=== PATIENT | female | born 1945 | race Caucasian/White ===

== ENCOUNTER 2023-01-07 14:06 | Emergency (ER) | payer MEDICARE, OTHER ==
[2023-01-07] MEDS ORDERED: Sodium Chloride 0.9% 10 ML Syringe FLUSH PRN (15:35)
[2023-01-07 16:09] LABS: BASOPHILS ABSOLUTE AUTO 0.02 K/mm3 (0.01-0.08); BASOPHILS PERCENT AUTO 0.3 % (0.1-1.2); EOSINOPHILS ABSOLUTE AUTO 0.09 K/mm3 (0.04-0.36); EOSINOPHILS PERCENT AUTO 1.3 (0.7-5.8); HEMATOCRIT 36.2 % (34.1-44.9); IMMATURE GRAN ABSOLUTE AUTO 0.03 K/mm3 (0.00-0.10); IMMATURE GRAN PERCENT AUTO 0.4 % (<=1.0); LYMPHOCYTES ABSOLUTE AUTO 0.72 K/mm3 (1.18-3.74); LYMPHOCYTES PERCENT AUTO 10.6 % (19.3-51.7); MEAN CORPUSCULAR HEMOGLOBIN 28.6 pg (25.6-32.2); MEAN CORPUSCULAR HGB CONC 32.6 g/dl (32.2-35.5); MEAN CORPUSCULAR VOLUME 87.9 fl (79.4-94.8); MEAN PLATELET VOLUME 9.4 fl (9.4-12.3); MONOCYTES ABSOLUTE AUTO 0.63 K/mm3 (0.24-0.36); MONOCYTES PERCENT AUTO 9.3 % (4.7-12.5); NEUTROPHILS ABSOLUTE AUTO 5.28 K/mm3 (1.56-6.13); NEUTROPHILS PERCENT AUTO 78.1 % (34.0-71.1); PLATELET COUNT,PLT 273 K/mm3 (182-369); RED BLOOD CELL COUNT 4.12 M/mm3 (3.98-5.22); WHITE BLOOD CELL COUNT,WBC 6.77 K/mm3 (3.98-10.04)
[2023-01-07 16:12] LABS: HEMOGLOBIN 11.8 gm/dl (11.2-15.7)
[2023-01-07 16:15] LABS: APPEARANCE,URINE CLEAR (Clear); BILIRUBIN,URINE NEGATIVE (Negative); COLOR,URINE YELLOW (Yellow); GLUCOSE,URINE NEGATIVE (Negative); KETONES,URINE NEGATIVE (Negative); LEUKOCYTE ESTERASE,URINE NEGATIVE (Negative); NITRITE,URINE NEGATIVE (Negative); OCCULT BLOOD,URINE TRACE-INTACT (Negative); PH,URINE 6.5 (5.0-8.0); PROTEIN,URINE NEGATIVE (Negative); UROBILINOGEN,URINE 0.2 (0.2-1.0)
[2023-01-07 16:25] LABS: INR 1.07; PROTHROMBIN TIME 11.4 SECONDS (9.7-12.0)
[2023-01-07 16:30] LABS: BACTERIA,URINE OCCASIONAL /hpf (FEW); EPITHELIAL CELLS,URINE NOT SEEN /hpf (0-5); MUCUS,URINE NOT SEEN /hpf (FEW); RBC,URINE 0-5 /hpf (0-5); SQUAMOUS EPITHELIAL CELLS,UR 0-5 /hpf (0-5); WBC,URINE NOT SEEN /hpf (0-5)
[2023-01-07 16:40] LABS: A/G RATIO 0.8 (1-2); ANION GAP 15.6 (5-15); BILIRUBIN TOTAL 0.9 mg/dL (0.2-1.0); BUN/CREATININE RATIO 11.7 (14-18); C-REACTIVE PROTEIN 1.4 mg/dL (<1.0); CALCIUM 9.1 mg/dL (8.5-10.1); CREATININE 1.2 mg/dL (0.55-1.02); EST CRCL DRUG DOSING (CG) 32.48 mL/min; MAGNESIUM 2.4 mg/dL (1.8-2.4); POTASSIUM,K 3.6 mEq/L (3.5-5.1); PROTEIN TOTAL,TP 6.9 g/dl (6.4-8.2); TSH 1.505 uIU/mL (0.358-3.74)
== END 2023-01-07 19:20 | disposition home or self-care (01) ==
LOC: JD.ED 14:06
DX: J00 Acute nasopharyngitis [common cold] (principal); Z88.5 Allergy status to narcotic agent; Z88.8 Allergy status to other drugs, medicaments and biological substances; Z88.1 Allergy status to other antibiotic agents; Z79.82 Long term (current) use of aspirin; Z98.890 Other specified postprocedural states
CPT/HCPCS: 36415; 71045; 80053; 81001; 82550; 83735; 83880; 84443; 84484; 85025; 85610; 85652; 85730; 86140; 87040; 99284; J3490